=== PATIENT | female | born 1970 | race Caucasian/White ===

== ENCOUNTER 2022-02-23 05:29 | Day surgery (SDC) | payer MEDICAID ==
[2022-02-15 15:59] LABS: BASOPHILS # (AUTO) 0.1 X10'3 (0-0.2); BASOPHILS % (AUTO) 0.9 % (0-1); EOSINOPHILS # (AUTO) 0.3 X10'3 (0-0.9); EOSINOPHILS % (AUTO) 4.1 % (0-6); LYMPHOCYTES # (AUTO) 2.4 X10'3 (1.1-4.8); LYMPHOCYTES % (AUTO) 30.6 % (21-51); MEAN CORPUSCULAR HEMOGLOBIN 29.9 PG (27.0-31.0); MEAN CORPUSCULAR HGB CONC 34.3 g/dL (33.0-36.5); MEAN PLATELET VOLUME 6.6 FL (7.4-10.4); MONOCYTES # (AUTO) 0.5 X10'3 (0-0.9); MONOCYTES % (AUTO) 6.4 % (2-12); NEUTROPHILS # (AUTO) 4.6 X10'3 (1.8-7.7); PRE OP HEMATOCRIT 36.2 % (35.0-45.0); PRE OP HEMOGLOBIN 12.4 g/dL (12.0-16.0); PRE OP PLATELET COUNT 472 X10'3 (140-440); RED BLOOD COUNT 4.16 X10'6 (4.20-5.60); RED CELL DISTRIBUTION WIDTH 14.1 % (11.5-14.5)
[2022-02-15 16:16] LABS: ALBUMIN 3.6 G/DL (3.4-5.0); ALBUMIN/GLOBULIN RATIO 0.9 (1.1-1.5); ALKALINE PHOSPHATASE 79 IU/L (46-116); BLOOD UREA NITROGEN 10 MG/DL (7-18); CALCIUM 9.4 MG/DL (8.5-10.1); CHLORIDE 103 MMOL/L (99-107); CREATININE 0.83 MG/DL (0.40-0.90); PRE OP ALT 32 U/L (30-65); PRE OP ANION GAP 10 (8-16); PRE OP AST 33 U/L (10-37); PRE OP BILIRUB, TOTAL 0.4 MG/DL (0.0-1.0); PRE OP GLUCOSE 157 MG/DL (70-104); PRE OP POTASSIUM 3.5 MMOL/L (3.4-5.1); PRE OP SODIUM 138 MMOL/L (135-145); TOTAL CARBON DIOXIDE 25.4 MMOL/L (24-32); TOTAL PROTEIN 7.8 G/DL (6.4-8.2); eGFR 73 ML/MIN
[~2022-02-23] VITALS: Ht 165.1 cm; Wt 117.3 kg
[~2022-02-23 05:29] MED LIST: LOSA25TA41 PO; ringers solution, lacted 1,000 ML IV SCH
[2022-02-23] MEDS ORDERED: ceFAZolin inj. 2,000 MG in dextrose 5%-water 100 ML IV ONE (05:30)
[2022-02-23] MEDS ORDERED: famotidine 20mg tablet PO ONE (05:30)
[2022-02-23 06:00] VITALS: BP 158/90
[2022-02-23] MEDS ORDERED: BUPIVAcaine 0.5% inj/PF 30 ML ONE (07:01)
[2022-02-23] MEDS ORDERED: fentaNYL/PF 50MCG/1 ML 2ML syringe ONE (07:31)
[2022-02-23] MEDS ORDERED: midazolam 1 mg/ML 2ml injection ONE ×2 (07:31→07:37)
[2022-02-23] MEDS ORDERED: LIDOcaine 0.5% (5mg/ml) 50ml vial ONE (07:32)
[2022-02-23] MEDS ORDERED: BUPIVAcaine 0.5% inj/PF 30 ml vial IJ ONE (07:40)
[2022-02-23 08:01] VITALS: BP 133/73
--- NOTE | 2022-02-23 08:01 | NUR ---
Received from OR via [facility] , accompanied by Anesthesiologist ANNABEL and report given by Anesthesiolgist. PATIENT WITH 20G PIV IN RIGHT HAND RUNNING LR AT 100. PATIENT WITH LEFT WRIST DRESSING THAT IS CDI. FINGERS PWD AND +MOVEMENT. ELEVATED AND ICED UPON ARRIVAL. Addendum: 02/23/22 at 0808 by Barney Randall RN, RN Amended: Links added.
[2022-02-23] MEDS ORDERED: ondansetron/PF 4mg/2ml inj IV PRN (08:05)
[2022-02-23] MEDS ORDERED: proCHLORperazine 10 MG/2 ml inj IV PRN (08:05)
[2022-02-23] MEDS ORDERED: meperidine/PF 25mg/ml syringe IV PRN ×3 (08:05)
[2022-02-23] MEDS ORDERED: morphine 4 MG/ML inj SYRINge IV PRN (08:05)
[2022-02-23] MEDS ORDERED: ringers solution, lacted 1,000 ML IV SCH (08:05)
[2022-02-23] MEDS ORDERED: morphine 2 MG/ML inj. syringe IV PRN (08:05)
[2022-02-23 08:10] VITALS: BP 150/76
[2022-02-23 08:20] VITALS: BP 125/70
--- NOTE | 2022-02-23 08:29 | NUR ---
BEING DRESSED BY [facility]. INSTRUCTIONS GIVEN TO SPOUSE AND HE UNDERSTANDS ALL. ALL DC INSTRUCTIONS GIVEN TO PATIENT. IV TAKEN OUT AND PATIENT TAKEN OUT VIA WHEELCHAIR TO PERSONAL VEHICLE WHERE SPOUSE DROVE PATIENT HOME. Addendum: 02/23/22 at 0830 by Barney Randall RN, RN Amended: Links added.
[2022-02-23 08:30] VITALS: BP 122/71
--- NOTE | 2022-02-23 08:32 | NUR ---
ALL DISCHARGE CRITERIA HAS BEEN MET. VSS, PAIN AT A TOLERABLE LEVEL, VOIDING AND ABLE TO SAFELY AMBULATE AND TRANSFER SELF. IV TAKEN OUT WITHOUT ANY COMPLICATIONS. ALL DISCHARGE INSTRUCTIONS COVERED WITH PATIENT AND ALL QUESTIONS ANSWERED. PATIENT TAKEN OUT VIA WHEELCHAIR TO PERSONAL VEHICLE WHERE FAMILY/FRIEND DROVE PATIENT HOME. Addendum: 02/23/22 at 0832 by Barney Randall RN, RN Amended: Links added.
== END 2022-02-23 08:31 | disposition home or self-care (01) ==
LOC: PAS 05:29
PROVIDERS: ATTEND Orthopaedic Surgery Hand Surgery
DX: G56.02 Carpal tunnel syndrome, left upper limb (principal); I10 Essential (primary) hypertension; G47.30 Sleep apnea, unspecified; K21.9 Gastro-esophageal reflux disease without esophagitis; M19.012 Primary osteoarthritis, left shoulder; E66.9 Obesity, unspecified; Z68.41 Body mass index [BMI] 40.0-44.9, adult; Z90.49 Acquired absence of other specified parts of digestive tract; Z98.890 Other specified postprocedural states; Z79.899 Other long term (current) drug therapy; Z82.49 Family history of ischemic heart disease and other diseases of the circulatory system
CPT/HCPCS: 29848; 36415; 80053; 82948; 85025; 93005; J0690; J2250; J3010; J3490; J7030; J7060; J7120; S0020; Z7506; Z7512; A4215; A6449; A7000

== ENCOUNTER 2022-03-23 05:19 | Day surgery (SDC) | payer MEDICAID ==
[2022-03-19 14:32] LABS: BASOPHILS % (AUTO) 0.6 % (0-1); EOSINOPHILS # (AUTO) 0.5 X10'3 (0-0.9); EOSINOPHILS % (AUTO) 6.3 % (0-6); LYMPHOCYTES # (AUTO) 2.5 X10'3 (1.1-4.8); LYMPHOCYTES % (AUTO) 30.3 % (21-51); MEAN CORPUSCULAR HGB CONC 34.2 g/dL (33.0-36.5); MEAN CORPUSCULAR VOLUME 87.6 FL (78-98); MEAN PLATELET VOLUME 6.6 FL (7.4-10.4); MONOCYTES # (AUTO) 0.7 X10'3 (0-0.9); MONOCYTES % (AUTO) 8.4 % (2-12); NEUTROPHILS # (AUTO) 4.4 X10'3 (1.8-7.7); NEUTROPHILS % (AUTO) 54.4 % (42-75); PRE OP PLATELET COUNT 438 X10'3 (140-440); RED BLOOD COUNT 4.33 X10'6 (4.20-5.60); RED CELL DISTRIBUTION WIDTH 14.4 % (11.5-14.5)
[2022-03-19 14:50] LABS: ALBUMIN 3.9 G/DL (3.4-5.0); ALKALINE PHOSPHATASE 85 IU/L (46-116); BLOOD UREA NITROGEN 11 MG/DL (7-18); BUN/CREATININE RATIO 15.9 (6.6-38.0); CALCIUM 9.7 MG/DL (8.5-10.1); CHLORIDE 103 MMOL/L (99-107); CREATININE 0.69 MG/DL (0.40-0.90); PRE OP ALT 27 U/L (30-65); PRE OP ANION GAP 11 (8-16); PRE OP AST 28 U/L (10-37); PRE OP BILIRUB, TOTAL 0.5 MG/DL (0.0-1.0); PRE OP GLUCOSE 100 MG/DL (70-104); PRE OP POTASSIUM 3.8 MMOL/L (3.4-5.1); PRE OP SODIUM 138 MMOL/L (135-145); TOTAL CARBON DIOXIDE 23.8 MMOL/L (24-32); TOTAL PROTEIN 7.9 G/DL (6.4-8.2); eGFR 90 ML/MIN
[2022-03-23] VITALS (8 sets, daily range): BP systolic 124–163; BP diastolic 68–96
[~2022-03-23] VITALS: Ht 165.1 cm; Wt 117.0 kg
[2022-03-23] MEDS ORDERED: famotidine 20mg tablet PO ONE (05:30)
[2022-03-23] MEDS ORDERED: ceFAZolin inj. 2,000 MG in dextrose 5%-water 100 ML IV ONE (05:30)
[2022-03-23] MEDS ORDERED: BUPIVAcaine 0.5% inj/PF 30 ML ONE (05:59)
[2022-03-23] MEDS ORDERED: labetalol 20mg/4ml (5mg/ml) syringe IV PRN (07:05)
[2022-03-23] MEDS ORDERED: morphine 2 MG/ML inj. syringe IV PRN (07:05)
[2022-03-23] MEDS ORDERED: ondansetron/PF 4mg/2ml inj IV PRN (07:05)
[2022-03-23] MEDS ORDERED: ringers solution, lacted 1,000 ML IV SCH (07:05)
[2022-03-23] MEDS ORDERED: morphine 4 MG/ML inj SYRINge IV PRN (07:05)
[2022-03-23] MEDS ORDERED: fentaNYL/PF 50MCG/1 ML 2ML syringe ONE (07:12)
[2022-03-23] MEDS ORDERED: LIDOcaine 0.5% (5mg/ml) 50ml vial ONE (07:13)
[2022-03-23] MEDS ORDERED: midazolam 1 mg/ML 2ml injection ONE ×2 (07:13)
[2022-03-23] MEDS ORDERED: BUPIVAcaine 0.5% inj/PF 30 ml vial IJ ONE (07:49)
--- NOTE | 2022-03-23 07:58 | NUR ---
Received from OR via [facility], accompanied by Anesthesiologist and report given by MARCE Anesthesiologist. PATIENT WAKING UP, NO S/S OF PAIN, V/S WNL, PIV 20G TO LEFT HAND, RIGHT WRIST DRESSING C/D/I. ICE AND ELEVATED RUE. Addendum: 03/23/22 at 0856 by Paulino Fontenot RN Amended: Links added.
--- NOTE | 2022-03-23 08:58 | NUR ---
ALL DISCHARGE CRITERIA HAS BEEN MET. VSS, PAIN AT A TOLERABLE LEVEL, ABLE TO SAFELY AMBULATE AND TRANSFER SELF. IV TAKEN OUT WITHOUT ANY COMPLICATIONS. ALL DISCHARGE INSTRUCTIONS COVERED WITH PATIENT AND ALL QUESTIONS ANSWERED. PATIENT TAKEN OUT VIA WHEELCHAIR WITH ALL BELONGINGS TO PERSONAL VEHICLE WHERE FAMILY DROVE PATIENT HOME. Addendum: 03/23/22 at 0901 by Paulino Fontenot RN Amended: Links added.
== END 2022-03-23 08:58 | disposition home or self-care (01) ==
LOC: PAS 05:19
PROVIDERS: ATTEND Orthopaedic Surgery Hand Surgery
DX: G56.01 Carpal tunnel syndrome, right upper limb (principal); G47.30 Sleep apnea, unspecified; I10 Essential (primary) hypertension; K21.9 Gastro-esophageal reflux disease without esophagitis; M19.012 Primary osteoarthritis, left shoulder; E66.01 Morbid (severe) obesity due to excess calories; Z68.41 Body mass index [BMI] 40.0-44.9, adult; Z90.49 Acquired absence of other specified parts of digestive tract; Z98.890 Other specified postprocedural states; Z79.899 Other long term (current) drug therapy; Z80.3 Family history of malignant neoplasm of breast; Z82.49 Family history of ischemic heart disease and other diseases of the circulatory system
CPT/HCPCS: 29848; 36415; 80053; 82948; 85025; J0690; J2250; J3010; J3490; J7030; J7060; J7120; S0020; Z7506; Z7512; A4215; A6449; A7000